=== PATIENT | female | born 1995 | race Caucasian/White ===

== ENCOUNTER 2019-02-14 07:51 | Outpatient (CLI) | payer OTHER ==
--- NOTE | 2019-02-14 09:08 | ULT ---
DIAGNOSTIC LEFT BREAST ULTRASOUND: Date: 02/14/19 INDICATION: 23-year-old female with recent onset palpable abnormality of the left upper breast. FINDINGS: Real-time evaluation was performed with sonography. The patient's breast was imaged at the 12, 3, 6, 9, and 10 o'clock locations, as well as interrogation of the periareolar regions. There is heterogene ous breast parenchyma without evidence of focal mass, cyst, or pathologic ductal dilatation. IMPRESSION: BIRADS Category 2 - Benign findings. The patient will be referred back to her clinician for further management of the palpable area of con cern. If there is persistent concern or clinical findings do not progress as expected, imaging follow -up may be obtained for continued assessment. Absence of imaging findings does not exclude the possibility of underlying neoplasm. POS: OFF
== END 2019-02-14 07:52 | disposition home or self-care (01) ==
LOC: BICULT 07:51
PROVIDERS: ATTEND Advanced Practice Midwife
DX: N63.21 Unspecified lump in the left breast, upper outer quadrant (principal)